=== PATIENT | male | born 1960 | race Two or more races ===

== ENCOUNTER 2019-10-21 10:46 | Inpatient (IN) | payer OTHER ==
[~2019-10-21] VITALS: Ht 170.2 cm; Wt 73.9 kg
[2019-11-27] MEDS ORDERED: NAPR500T14 (14:05)
[2019-11-27] MEDS ORDERED: CATAFLAN (14:06)
[2019-12-03] MEDS ORDERED: DICLOFENAC SODI75 MG PO (08:28)
[2019-12-03] MEDS ORDERED: NAPROXEN500 MG PO (08:30)
== END 2019-12-05 19:29 | DRG 470 ==
LOC: SURG 11-25 11:00 → O/R 12-03 05:30 → SURG 12-03 05:30
PROVIDERS: ADMIT Orthopaedic Surgery
PROC: 0SRD0J9 Replacement of Left Knee Joint with Synthetic Substitute, Cemented, Open Approach (ICD-10-PCS; principal; 2019-12-03 10:15)
DX: M17.12 Unilateral primary osteoarthritis, left knee (principal); D62 Acute posthemorrhagic anemia; Z96.651 Presence of right artificial knee joint

== ENCOUNTER → 2021-05-05 09:57 | Outpatient (CLI) | payer OTHER ==
[~2021-05-05 09:57] MED LIST: CATAFLAN; DICLOFENAC SODI75 MG PO; NAPR500T14; NAPROXEN500 MG PO
== END | disposition home or self-care (01) ==
LOC: RAD 09:57
PROVIDERS: ATTEND Orthopaedic Surgery
DX: M25.561 Pain in right knee (principal); M25.562 Pain in left knee

== ENCOUNTER 2021-10-27 05:38 | Day surgery (SDC) | payer OTHER ==
[~2021-10-27 05:38] MED LIST changes: +CATAFLAN PO; +PEPCID PO
[2021-10-27] MEDS ORDERED: OXYC1TAB9 PO (10:06)
[2021-10-27] MEDS ORDERED: MIRALAX17 GM PO (10:07)
[2021-10-27] MEDS ORDERED: SURFAK240 M1 PO (10:07)
== END 2021-10-27 13:20 | disposition home or self-care (01) ==
LOC: CIR.AMB 05:38
PROVIDERS: ATTEND Surgery
DX: K43.9 Ventral hernia without obstruction or gangrene (principal); K42.9 Umbilical hernia without obstruction or gangrene